=== PATIENT | male | born 1985 | race African-American/Black ===

== ENCOUNTER 2016-08-18 17:31 | Emergency (ER) | payer MEDICARE ==
[~2016-08-18] VITALS: Ht 165.1 cm; Wt 63.5 kg
[~2016-08-18 17:31] MED LIST: AMOX875T PO; HYDR-971 PO
[2016-08-18] MEDS ORDERED: IV NORMAL SALINE 1000ML BAG 1,000 ML IV SCH (17:43)
[2016-08-18] MEDS ORDERED: 0.9 % SODIUM CHLORIDE 10 ML DISP.SYRIN. IV PRN (17:45)
--- NOTE | 2016-08-18 17:53 | PHYS DOC ---
Past Medical History Past Medical History: HIV, Other Additional Past Medical Histor: HIV Past Surgical History: No Surgical History Additional Past Surgical Histo: hypospadias, umbilical hernia Alcohol Use: None Drug Use: None Adult General Chief Complaint Chief Complaint: ABDOMINAL PAIN HPI HPI As is a pleasant 31-year-old male with history of HIV who presents is on no medications, does not know his last viral load, does not know his last CD4 count he is here with his partner have no relationship with a infectious disease doctor or primary care physician. Has had sore throat intermittently with as he describes candidiasis on the posterior mucosal of his throat along with diffuse epigastric and abdominal pain with problems. He's been having these symptoms for weeks has gotten progressively more fatigued. He denies any documented fevers, nausea, vomiting, diarrhea, he is very constipated with very few stools every few days. It is hard and well-formed grading some rectal discomfort with slight rectal bleeding while wiping with toilet paper. Patient denies any other rash or skin symptoms, patient denies any headache change in vision problems eating or sleeping or joint pain. Review of Systems Review of Systems Constitutional: Denies fever or chills [] Eyes: Denies change in visual acuity, redness, or eye pain [] HENT: Denies nasal congestion he does complain of sore throat with candidiasis without change in voice anterior neck swelling or fevers. Respiratory: Denies cough or shortness of breath [] Cardiovascular: No additional information not addressed in HPI [] GI: Planes of abdominal pain with constipation no nausea vomiting diarrhea he does quite a rectal pain with bowel movements. : Denies dysuria or hematuria [] Musculoskeletal: Denies back pain or joint pain [] Integument: Denies rash or skin lesions [] Neurologic: Denies headache, focal weakness or sensory changes [] Endocrine: Denies polyuria or polydipsia [] Current Medications Current Medications Current Medications Medications (Trade) Dose Ordered Sig/Alda Start Time Stop Time Status Last Admin Dose Admin Acetaminophen (Tylenol) 650 mg PRN Q4HRS PRN 08/18/16 19:45 08/19/16 19:44 Info (Do NOT chart on this entry -- for MONITORING) 1 each PRN DAILY PRN 08/18/16 18:00 08/20/16 17:59 Iohexol (Omnipaque 300 Mg/ml) 75 ml 1X ONCE 08/18/16 18:00 08/18/16 18:01 DC 08/18/16 18:00 75 ML Ondansetron HCl (Zofran) 4 mg PRN Q8HRS PRN 08/18/16 19:45 08/19/16 19:44 Sodium Chloride (Normal Saline Flush) 10 ml QSHIFT PRN 08/18/16 17:45 Allergies Allergies Allergies Coded Allergies Type Severity Reaction Last Updated Verified No Known Drug Allergies 04/21/16 No Physical Exam Physical Exam Constitutional: Well developed, well nourished, no acute distress, non-toxic appearance. [] HENT: Normocephalic, atraumatic, bilateral external ears normal, oropharynx moist, oropharynx is demonstrates erythema without candidiasis or exudates nose normal. [] Eyes: PERRLA, EOMI, conjunctiva normal, no discharge. [] Neck: Normal range of motion, no tenderness, supple, no stridor. [] Cardiovascular:Heart rate regular rhythm, no murmur [] Lungs & Thorax: Bilateral breath sounds clear to auscultation [] Abdomen: Bowel sounds normal, soft, no tenderness, no masses, no pulsatile masses. [] Skin: Warm, dry, no erythema, no rash. [] Back: No tenderness, no CVA tenderness. [] Extremities: No tenderness, no cyanosis, no clubbing, ROM intact, no edema. [] Neurologic: Alert and oriented X 3, normal motor function, normal sensory function, no focal deficits noted. [] Psychologic: Affect normal, judgement normal, mood normal. []\ exam demonstrated no rashes, discharge from his penis, no lesions or on his groin and testicles Rectum demonstrates small denuded lesions ulcers at the 3 clock position above his rectum. They're markedly tender no active bleeding Current Patient Data Vital Signs Vital Signs Date Time Temp Pulse Resp B/P (MAP) Pulse Ox O2 Delivery O2 Flow Rate FiO2 08/18/16 19:30 82 16 119/86 (97) 100 08/18/16 17:40 97.9 Room Air 97.9 Lab Values Laboratory Tests Test 08/18/16 18:10 08/18/16 18:45 White Blood Count 5.8 x10^3/uL (4.0-11.0) Red Blood Count 4.92 x10^6/uL (4.30-5.70) Hemoglobin 12.8 g/dL (13.0-17.5) L Hematocrit 38.9 % (39.0-53.0) L Mean Corpuscular Volume 79 fL (79-100) Mean Corpuscular Hemoglobin 26 pg (25-35) Mean Corpuscular Hemoglobin Concent 33 g/dL (31-37) Red Cell Distribution Width 13.9 % (11.5-14.5) Platelet Count 222 x10^3/uL (140-400) Neutrophils (%) (Auto) 37 % (31-73) Lymphocytes (%) (Auto) 52 % (24-48) H Monocytes (%) (Auto) 9 % (0-9) Eosinophils (%) (Auto) 1 % (0-3) Basophils (%) (Auto) 1 % (0-3) Neutrophils # (Auto) 2.2 x10^3uL (1.8-7.7) Lymphocytes # (Auto) 3.0 x10^3/uL (1.0-4.8) Monocytes # (Auto) 0.5 x10^3/uL (0.0-1.1) Eosinophils # (Auto) 0.0 x10^3/uL (0.0-0.7) Basophils # (Auto) 0.0 x10^3/uL (0.0-0.2) Sodium Level 139 mmol/L (136-145) Potassium Level 3.6 mmol/L (3.5-5.1) Chloride Level 102 mmol/L (98-107) Carbon Dioxide Level 28 mmol/L (21-32) Anion Gap 9 (6-14) Blood Urea Nitrogen 10 mg/dL (8-26) Creatinine 0.8 mg/dL (0.7-1.3) Estimated GFR (Cockcroft-Gault) 135.6 Glucose Level 94 mg/dL (70-99) Calcium Level 9.3 mg/dL (8.5-10.1) Magnesium Level 2.2 mg/dL (1.8-2.4) Total Bilirubin 0.4 mg/dL (0.2-1.0) Direct Bilirubin 0.1 mg/dL (0.0-0.2) Aspartate Amino Transferase (AST) 22 U/L (15-37) Alanine Aminotransferase (ALT) 16 U/L (16-63) Alkaline Phosphatase 64 U/L (46-116) Total Protein 10.3 g/dL (6.4-8.2) H Albumin 3.9 g/dL (3.4-5.0) Lipase 107 U/L (73-393) Urine Collection Type Unknown Urine Color Yellow Urine Clarity Clear Urine pH 7.0 Urine Specific Creede <=1.005 Urine Protein Negative mg/dL (NEG-TRACE) Urine Glucose (UA) Negative mg/dL (NEG) Urine Ketones (Stick) Negative mg/dL (NEG) Urine Blood Negative (NEG) Urine Nitrite Negative (NEG) Urine Bilirubin Negative (NEG) Urine Urobilinogen Dipstick 1.0 mg/dL (0.2 mg/dL) Urine Leukocyte Esterase Negative (NEG) Urine RBC Occ /HPF (0-2) Urine WBC 1-4 /HPF (0-4) Urine Bacteria 0 /HPF (0-FEW) Laboratory Tests 08/18/16 18:10 Laboratory Tests 08/18/16 18:10 EKG EKG [] Radiology/Procedures Radiology/Procedures [] Course & Med Decision Making Course & Med Decision Making Pertinent Labs and Imaging studies reviewed. (See chart for details) [] Patient and his partner are both HIV-positive with no medications on board, no history or follow-up with general medicine or infectious disease, who complains of oral candidiasis general fatigue and abdominal pain. I concern is not knowing there CD4 count or last viral load and on no medications suffering from AIDS at this time. We will screen him for PCP pneumonia as well as other as well as other opportunistic infections to include superficial skin infections like candidiasis or herpes we will screen him for sexually transmitted diseases pressure with his rectal pain and cervical claim rectal discomfort we'll also check for normal sources of infection. We also screen for hepatitis A, B, and C Patient is a pleasant 25 over who is HIV positive he has some remote complaint of sore throat with candidiasis as well as rectal pain and constipation by concern based on my physical exam findings is that since he does not know CD4 count and viral load is maybe opportunistic infections associate with a low CD4 count. Hepatitis screen as well as viral screen of this denuded ulcer in his rectum. Patient has strep throat culture done patient also had CT of his abdomen and pelvis completed as well as chest x-ray to rule out other abdomen is confections like PCP pneumonia. Patient become comfortable here in the emergency department and admitted to the hospital for continued evaluation and evaluation by infectious disease. Discussed with Dr. MAGALLON who is willing to admit this patient and have ID evaluate patient as well to help initiate antiretroviral therapy is appropriate. Impression: HSV of rectum, report of candidasis, ab pain Disposition: admission Patient was supporting his partner who decided to leave AMA secondary to agitation with his mother. Patient is lucid and understands the medical risks of leaving without completing the evaluation. I explained the medical risks and benefits to the patient and family at the bedside. I reviewed all laboratory work and x-rays completed during his evaluation. I described the risks intrinsic with leaving without being completely evaluated properly. We discussed obligations ranging from , to infection, permanent disability and disfigurement. Encouraged encouraged him to return for any new or increasing symptoms or feels like to proceed with admission and complete workup. This patient signed paperwork without being cajoled and had no questions or concerns upon discharge.vital signs are stable upon discharge Dragon Disclaimer Dragon Disclaimer This electronic medical record was generated, in whole or in part, using a voice recognition dictation system. Departure Departure Impression: Primary Impression: Left against medical advice Additional Impressions: Abdominal pain HIV (human immunodeficiency virus infection) Disposition: 07 AGAINST MEDICAL ADVICE Condition: STABLE Referrals: NO PCP (PCP) Patient Instructions: Abdominal Pain (Nonspecific), HIV Infection and AIDS- [facility] Additional Instructions: Spite leaving AMA patient was encouraged to follow-up with internal medicine, infectious disease, and return to the emergency department for any questions or concerns or if he wanted to finish his workup. Problem Qualifiers PEDRO WALDRON MD August 18, 2016 17:53
[2016-08-18] MEDS ORDERED: CONTRAST GIVEN MC PRN (18:00)
[2016-08-18] MEDS ORDERED: IOHEXOL 300 MG/ML 75 ML VIAL IV ONE (18:00)
[2016-08-18 18:19] LABS: BASO % 1 % (0-3); EOS % 1 % (0-3); HEMATOCRIT 38.9 % (39.0-53.0); HEMOGLOBIN 12.8 g/dL (13.0-17.5); LYMPH % 52 % (24-48); MEAN CORPUSCULAR HEMOGLOBIN 26 pg (25-35); MEAN CORPUSCULAR HGB CONC 33 g/dL (31-37); MEAN CORPUSCULAR VOLUME 79 fL (79-100); MONO % 9 % (0-9); NEUT % 37 % (31-73); PLATELET COUNT 222 x10^3/uL (140-400); RED BLOOD COUNT 4.92 x10^6/uL (4.30-5.70); RED CELL DISTRIBUTION WIDTH 13.9 % (11.5-14.5); WHITE BLOOD COUNT 5.8 x10^3/uL (4.0-11.0)
[2016-08-18 18:58] LABS: BILIRUBIN,URINE NEGATIVE (NEG); GLUCOSE,URINE NEGATIVE (NEG); NITRITE,URINE NEGATIVE (NEG); PROTEIN,URINE NEGATIVE (NEG-TRACE)
[2016-08-18 19:06] LABS: CALCIUM 9.3 mg/dL (8.5-10.1); CREATININE 0.8 mg/dL (0.7-1.3); GFR 135.6; POTASSIUM 3.6 mmol/L (3.5-5.1)
[2016-08-18 19:11] LABS: ALBUMIN 3.9 g/dL (3.4-5.0); DIRECT BILIRUBIN 0.1 mg/dL (0.0-0.2); MAGNESIUM 2.2 mg/dL (1.8-2.4); TOTAL BILIRUBIN 0.4 mg/dL (0.2-1.0); TOTAL PROTEIN 10.3 g/dL (6.4-8.2)
[2016-08-18 19:12] LABS: BACTERIA,URINE 0 /HPF (0-FEW); RBC,URINE OCC /HPF (0-2)
[2016-08-18 19:30] VITALS: BP 119/86
[2016-08-18] MEDS ORDERED: ACETAMINOPHEN 325 MG TABLET. PO PRN (19:45)
[2016-08-18] MEDS ORDERED: ONDANSETRON PF 4 MG/2 ML VIAL. IV PRN (19:45)
--- NOTE | 2016-08-18 20:16 | RAD ---
CT abdomen and pelvis with contrast Indication: Abdominal pain and fever for 1 month as well as constipation. Axial imaging through the abdomen and pelvis was performed after the administration of intravenous contrast. PQRS STATEMENT One or more of the following individualized dose reduction techniques were utilized for this study: 1.Automated exposure control. 2.Adjustment of the mA and/orkVaccording to patient size. 3.Use of iterative reconstruction technique. The lung bases are clear. The liver and gallbladder are unremarkable. The pancreas and spleen are unremarkable. No adrenal mass is identified. The kidneys are unremarkable. Aorta is non aneurysmal. The small and large bowel loops are normal caliber. No obstruction is seen. There is no free fluid. No definite central retroperitoneal or mesenteric lymphadenopathy is detected. There are multiple mildly prominent lymph nodes in the inguinal regions bilaterally. No definite iliac lymphadenopathy is detected. The bladder is unremarkable. Impression: Essentially unremarkable CT of the abdomen and pelvis. Electronically signed by: Killian De Leon MD (August 18, 2016 20:15:05)
--- NOTE | 2016-08-19 00:03 | HP ---
ADMIT DATE: 08/18/2016 CHIEF COMPLAINT: Abdominal pain, anus pain, and thrush. HISTORY OF PRESENT ILLNESS: The patient is a pleasant 31-year-old male, who has previous HIV diagnosis, but has not taken his meds for over a year and a half. He has got abdominal pain now. His anus has got a lesion. He has had some thrush. He is concerned that he could have progression of his disease. I have discussed the case with the ER physician. We are going to admit the patient and consult Infectious Disease. PAST MEDICAL HISTORY: HIV. ALLERGIES: None. FAMILY HISTORY: Diabetes. SOCIAL HISTORY: He works at [employer]____. He does not drink, smoke, or take drugs. MEDICATIONS: Reviewed. Please refer to the MRAD. REVIEW OF SYSTEMS: GENERAL: No history of weight change, weakness or fevers. SKIN: No bruising, hair changes or rashes. EYES: No blurred, double or loss of vision. NOSE AND THROAT: No history of nosebleeds, hoarseness or sore throat. He complains of thrush. HEART: No history of palpitations, chest pain or shortness of breath on exertion. LUNGS: Denies cough, hemoptysis, wheezing or shortness of breath. GASTROINTESTINAL: He complains of abdominal pain. He complains of anus pain. GENITOURINARY: No history of frequency, urgency, hesitancy or nocturia. NEUROLOGIC: Denies history of numbness, tingling, tremor or weakness. PSYCHIATRIC: No history of panic, anxiety or depression. ENDOCRINE: No history of heat or cold intolerance, polyuria or polydipsia. EXTREMITIES: Denies muscle weakness, joint pain, pain on walking or stiffness. PHYSICAL EXAMINATION: VITAL SIGNS: Temperature afebrile, pulse 74, respirations 22, and blood pressure 136/91. GASTROINTESTINAL: He is alert, cooperative, and pleasant. HEART: Normal S1, S2. LUNGS: Clear. ABDOMEN: Soft, positive bowel sounds, and tender. EXTREMITIES: No edema. SKIN: No rashes. PSYCHIATRIC: He is stable. VASCULAR: Good capillary refill. ENDOCRINE: No thyromegaly. LYMPHATICS: No cervical nodes. HEMATOPOIETIC: No bruising. HEENT: He has some mild thrush. ASSESSMENT AND PLAN: Human immunodeficiency virus with noncompliance with medication with progression of disease. The patient has been admitted. We will consult Infectious Disease. Check viral load, CD4 count, and human immunodeficiency virus antibodies. Resume home medicines. DAX MAGALLON DO DR: MERCEDES/lidia JOB#: [id number] / [id number]
[2016-08-19 08:02] LABS: NEGATIVE OBC STREP NEG; POSITIVE OBC STREP POS
--- NOTE | 2016-08-19 09:25 | RAD ---
EXAM: CHEST 2 VIEWS History: Sore throat TECHNIQUE: PA and lateral chest radiographs FINDINGS: The cardiomediastinal silhouette is within normal limits. The lungs are clear bilaterally. The costophrenic sulci are clear and well demarcated bilaterally. IMPRESSION: No radiographic evidence of an acute cardiopulmonary abnormality.
[2016-08-19 13:15] LABS: HEP A IGM ABDY Negative (Negative)
[2016-08-22 19:15] LABS: HERPES SIMPLEX TYPE 1 Negative (Negative); HERPES SIMPLEX TYPE 2 Positive (Negative)
== END 2016-08-18 20:13 | disposition left against medical advice (07) ==
LOC: ER 19:13
DX: R10.13 Epigastric pain (principal); J02.9 Acute pharyngitis, unspecified; B37.9 Candidiasis, unspecified; Z21 Asymptomatic human immunodeficiency virus [HIV] infection status; Z91.14 Patient's other noncompliance with medication regimen
CPT/HCPCS: 71020; 74177; 80048; 80074; 80076; 81001; 83690; 83735; 85027; 87070; 87536; 87880; 96360; 99285; J7030; Q9967; 87529

== ENCOUNTER 2016-10-11 16:03 | Emergency (ER) | payer MEDICARE ==
[~2016-10-11] VITALS: Ht 165.1 cm; Wt 65.8 kg
[2016-10-11] MEDS ORDERED: ONDANSETRON ODT 4 MG TAB.RAPDIS. PO ONE (18:00)
[2016-10-11] MEDS ORDERED: HYDROcodone/APAP 5/325MG 1 TAB TABLET PO ONE (18:00)
[2016-10-11 18:23] LABS: BASO % 1 % (0-3); EOS % 2 % (0-3); HEMOGLOBIN 11.7 g/dL (13.0-17.5); LYMPH # 2.6 x10^3/uL (1.0-4.8); LYMPH % 52 % (24-48); MEAN CORPUSCULAR HEMOGLOBIN 26 pg (25-35); MEAN CORPUSCULAR HGB CONC 32 g/dL (31-37); MEAN CORPUSCULAR VOLUME 79 fL (79-100); MONO % 9 % (0-9); NEUT % 36 % (31-73); PLATELET COUNT 227 x10^3/uL (140-400); RED BLOOD COUNT 4.54 x10^6/uL (4.30-5.70); RED CELL DISTRIBUTION WIDTH 13.8 % (11.5-14.5)
--- NOTE | 2016-10-11 18:26 | RAD ---
Indication: Headache for 2 weeks. The patient is HIV positive. Axial imaging through the brain was performed without contrast. One or more of the following individualized dose reduction techniques were utilized for this examination: 1. Automated exposure control 2. Adjustment of the mA and/or kV according to patient size 3. Use of iterative reconstruction technique No prior studies are available for comparison. The ventricles and sulci are within normal limits. No sulcal effacement, midline shift or hemorrhage is detected. The cisterns are patent. The visualized paranasal sinuses are clear. IMPRESSION: No acute intracranial process is detected. Electronically signed by: Killian De Leon MD (10/11/2016 6:22 PM) [facility]
[2016-10-11 18:33] LABS: CALCIUM 8.3 mg/dL (8.5-10.1); GFR 104.8; POTASSIUM 3.6 mmol/L (3.5-5.1)
[2016-10-11 18:38] LABS: ALBUMIN 3.5 g/dL (3.4-5.0); ALBUMIN/GLOBULIN RATIO 0.7 (1.0-1.7); TOTAL BILIRUBIN 0.2 mg/dL (0.2-1.0); TOTAL PROTEIN 8.8 g/dL (6.4-8.2)
[2016-10-11 19:00] LABS: % EOS 1 % (0-5); PLT ESTIMATE ADEQUATE (ADEQUATE)
--- NOTE | 2016-10-11 19:04 | RAD ---
Indication: Abdominal pain and constipation. The pancreatic head and proximal body are unremarkable. The tail was not well visualized. No focal liver mass is detected. The aorta is nonaneurysmal. The gallbladder is contracted. No definite gallstones are seen. No biliary ductal dilatation is identified. The spleen is normal in size. The right and left kidneys are unremarkable. There is no ascites. IMPRESSION: Unremarkable abdominal ultrasound. Electronically signed by: Killian De Leon MD (10/11/2016 7:01 PM) [facility]
--- NOTE | 2016-10-11 20:53 | PHYS DOC ---
Past Medical History Past Medical History: HIV Additional Past Medical Histor: HIV Past Surgical History: Other Additional Past Surgical Histo: hypospadias, umbilical hernia Alcohol Use: None Drug Use: None Adult General Chief Complaint Chief Complaint: HEADACHE HPI HPI Patient is a 31 year old male with history of HIV currently not on medication who presents today requesting to be admitted so that he can be put on medications. Patient states he has been off his medications for 1-2 years. He states he used to live in [place] and moved to [facility]. He states he was seen in the ED in August 28 with his partner and they offered him admission so that they can be seen by infectious disease and started on medication but he and the partner left AMA. Patient states he has had an intermittent frontal headache for 2 weeks. Denies any vision changes photophobia nausea vomiting. Patient denies this being the worst headache in his life. He describes the headache as throbbing. He is also complaining of chronic abdominal pain. Patient denies any nausea vomiting. Denies any fever. Patient states his infection count was very high when they were last seen at the health department. Patient states they follow-up with the health department they were told it will take approximately 6 or more weeks before they can be seen by a specialist and be started on medication, they state the social media senior associate is working on it but they feel it is taking a long time and they condition is deteriorating though they have no symptoms worse than normal Review of Systems Review of Systems Constitutional: Denies fever or chills [] Eyes: Denies change in visual acuity, redness, or eye pain [] HENT: Denies nasal congestion or sore throat [] Respiratory: Denies cough or shortness of breath [] Cardiovascular: No additional information not addressed in HPI [] GI: abdominal pain : Denies dysuria or hematuria [] Musculoskeletal: Denies back pain or joint pain [] Integument: Denies rash or skin lesions [] Neurologic: headache Endocrine: Denies polyuria or polydipsia [] Current Medications Current Medications Current Medications Medications (Trade) Dose Ordered Sig/Alda Start Time Stop Time Status Last Admin Dose Admin Acetaminophen/ Hydrocodone Bitart (Lortab 5/325) 1 tab 1X ONCE 10/11/16 18:00 10/11/16 18:02 DC 10/11/16 18:21 1 TAB Ondansetron HCl (Zofran Odt) 4 mg 1X ONCE 10/11/16 18:00 10/11/16 18:02 DC 10/11/16 18:20 4 MG Allergies Allergies Allergies Coded Allergies Type Severity Reaction Last Updated Verified No Known Drug Allergies 04/21/16 No Physical Exam Physical Exam Constitutional: Well developed, well nourished, no acute distress, non-toxic appearance. [] HENT: Normocephalic, atraumatic, bilateral external ears normal, oropharynx moist, no oral exudates, nose normal. [] Eyes: PERRLA, EOMI, conjunctiva normal, no discharge. [] Neck: Normal range of motion, no tenderness, supple, no stridor. [] Cardiovascular:Heart rate regular rhythm, no murmur [] Lungs & Thorax: Bilateral breath sounds clear to auscultation [] Abdomen: Bowel sounds normal, soft, no tenderness, no masses, no pulsatile masses. [] Skin: Warm, dry, no erythema, no rash. [] Back: No tenderness, no CVA tenderness. [] Extremities: No tenderness, no cyanosis, no clubbing, ROM intact, no edema. [] Neurologic: Alert and oriented X 3, normal motor function, normal sensory function, no focal deficits noted. Cranial II through XII intact Psychologic: Affect normal, judgement normal, mood normal. [] Current Patient Data Vital Signs Vital Signs Date Time Temp Pulse Resp B/P (MAP) Pulse Ox O2 Delivery O2 Flow Rate FiO2 10/11/16 19:27 67 128/83 (98) Room Air 10/11/16 18:21 16 10/11/16 17:00 99 10/11/16 16:15 98.1 98.1 Lab Values Laboratory Tests Test 10/11/16 18:10 White Blood Count 5.0 x10^3/uL (4.0-11.0) Red Blood Count 4.54 x10^6/uL (4.30-5.70) Hemoglobin 11.7 g/dL (13.0-17.5) L Hematocrit 36.0 % (39.0-53.0) L Mean Corpuscular Volume 79 fL (79-100) Mean Corpuscular Hemoglobin 26 pg (25-35) Mean Corpuscular Hemoglobin Concent 32 g/dL (31-37) Red Cell Distribution Width 13.8 % (11.5-14.5) Platelet Count 227 x10^3/uL (140-400) Neutrophils (%) (Auto) 36 % (31-73) Lymphocytes (%) (Auto) 52 % (24-48) H Monocytes (%) (Auto) 9 % (0-9) Eosinophils (%) (Auto) 2 % (0-3) Basophils (%) (Auto) 1 % (0-3) Neutrophils # (Auto) 1.8 x10^3uL (1.8-7.7) Lymphocytes # (Auto) 2.6 x10^3/uL (1.0-4.8) Monocytes # (Auto) 0.5 x10^3/uL (0.0-1.1) Eosinophils # (Auto) 0.1 x10^3/uL (0.0-0.7) Basophils # (Auto) 0.0 x10^3/uL (0.0-0.2) Segmented Neutrophils % 43 % (35-66) Lymphocytes % 50 % (24-48) H Atypical Lymphocytes % (Manual) 1 % (0-0) H Monocytes % 5 % (0-10) Eosinophils % 1 % (0-5) Platelet Estimate Adequate (ADEQUATE) Sodium Level 142 mmol/L (136-145) Potassium Level 3.6 mmol/L (3.5-5.1) Chloride Level 105 mmol/L (98-107) Carbon Dioxide Level 32 mmol/L (21-32) Anion Gap 5 (6-14) L Blood Urea Nitrogen 11 mg/dL (8-26) Creatinine 1.0 mg/dL (0.7-1.3) Estimated GFR (Cockcroft-Gault) 104.8 BUN/Creatinine Ratio 11 (6-20) Glucose Level 92 mg/dL (70-99) Calcium Level 8.3 mg/dL (8.5-10.1) L Total Bilirubin 0.2 mg/dL (0.2-1.0) Aspartate Amino Transferase (AST) 16 U/L (15-37) Alanine Aminotransferase (ALT) 13 U/L (16-63) L Alkaline Phosphatase 69 U/L (46-116) Total Protein 8.8 g/dL (6.4-8.2) H Albumin 3.5 g/dL (3.4-5.0) Albumin/Globulin Ratio 0.7 (1.0-1.7) L Lipase 130 U/L (73-393) Laboratory Tests 10/11/16 18:10 Laboratory Tests 10/11/16 18:10 EKG EKG [] Radiology/Procedures Radiology/Procedures [] Course & Med Decision Making Course & Med Decision Making Pertinent Labs and Imaging studies reviewed. (See chart for details) This is a HIV patient who presents to the ED today requesting to be admitted so that they can be seen by infectious disease and be put on medication. Please see history of present illness. Patient's workup in the ED was negative for any acute findings. 19:[address] Casillas who requested we consult infectious disease and see if they can help patient is stated about admitting him. 19:42 I spoke with , he stated patient and partner should call his clinic tomorrow morning at 9 AM. He stated he will get him connected with the [facility] program which assists patient with HIV to get treatment. Dragon Disclaimer Dragon Disclaimer This electronic medical record was generated, in whole or in part, using a voice recognition dictation system. Departure Departure Impression: Primary Impression: Abdominal pain Additional Impressions: HIV disease Headache Disposition: HOME, SELF-CARE Condition: STABLE Referrals: NO PCP (PCP) NANCY KENDALL MD Call his office tomorrow at 9 AM. He will get you connected with the [facility] for medications. Patient Instructions: Abdominal Pain, General Headache Without Cause, Easy-to- Read Additional Instructions: Please call Dr. Kendall's office tomorrow at 9 AM. He will get you connected with the [facility] program for medications. Problem Qualifiers Primary Impression: Abdominal pain Abdominal location: generalized Qualified Codes: R10.84 - Generalized abdominal pain Additional Impressions: Headache Headache type: unspecified Headache chronicity pattern: acute headache Intractability: not intractable Qualified Codes: R51 - Headache CARISSA RAO [employer] Oct 11, 2016 20:53
[2016-10-11 20:57] VITALS: BP 125/77
== END 2016-10-11 21:02 | disposition home or self-care (01) ==
LOC: ER 16:03
DX: R51 Headache (principal); G89.29 Other chronic pain; R10.84 Generalized abdominal pain; Z21 Asymptomatic human immunodeficiency virus [HIV] infection status
CPT/HCPCS: 36415; 70450; 76700; 80053; 83690; 85007; 85027; 86360; 99285; Q0162